=== PATIENT | female | born 1950 | race Caucasian/White ===

== ENCOUNTER 2016-08-19 19:43 | Emergency (ER) | payer BC, SELFPAY ==
[2016-08-19] MEDS ORDERED: HYDROcodone/Acetaminophen 10/325 mg Tablet ONE (20:21)
--- NOTE | 2016-08-19 23:57 | RAD ---
RIGHT WRIST THREE VIEWS 08/19/16 A fracture through the distal radius is present that extends into the radiocarpal joint. Displacemen t is minimal. Additionally, there is a fracture through the dorsal medial portion of the triquetrum which is slightly displaced. The remaining carpals appear intact. The distal ulnar appears intact. IMPRESSION: 1. Intra-articular fracture of the distal radius. 2. Triquetral fracture. Code T POS: HOME
== END 2016-08-19 20:40 | disposition home or self-care (01) ==
LOC: BURERS 19:43
DX: S52.571A Other intraarticular fracture of lower end of right radius, initial encounter for closed fracture (principal); W18.30XA Fall on same level, unspecified, initial encounter
CPT/HCPCS: 29105